=== PATIENT | female | born 1990 | race Caucasian/White ===

== ENCOUNTER 2024-05-25 16:04 | Outpatient (CLI) | payer OTHER | END 2024-05-25 17:35 | disposition home or self-care (01) | LOC: NST 16:04 | PROVIDERS: ATTEND Obstetrics & Gynecology Maternal & Fetal Medicine | DX: Z34.82 Encounter for supervision of other normal pregnancy, second trimester (principal) ==

== ENCOUNTER 2024-06-03 08:39 | Outpatient (CLI) | payer OTHER | END 2024-06-03 09:32 | disposition home or self-care (01) | LOC: NST 08:39 | PROVIDERS: ATTEND Obstetrics & Gynecology Maternal & Fetal Medicine | DX: Z34.82 Encounter for supervision of other normal pregnancy, second trimester (principal) ==

== ENCOUNTER 2024-07-22 13:08 | Outpatient (CLI) | payer OTHER | END 2024-07-22 14:23 | disposition home or self-care (01) | LOC: NST 13:08 | PROVIDERS: ATTEND Obstetrics & Gynecology | DX: Z34.83 Encounter for supervision of other normal pregnancy, third trimester (principal) ==

== ENCOUNTER 2024-08-23 09:55 | Outpatient (CLI) | payer OTHER | END 2024-08-23 10:45 | disposition home or self-care (01) | LOC: NST 09:55 | PROVIDERS: ATTEND Obstetrics & Gynecology | DX: Z34.83 Encounter for supervision of other normal pregnancy, third trimester (principal) ==

== ENCOUNTER 2024-08-26 10:53 | Inpatient (IN) | payer OTHER ==
[~2024-08-26] VITALS: Ht 152.4 cm; Wt 3.2 kg
[2024-08-30 14:17] VITALS: BP 110/58
[2024-08-30 14:40] VITALS: BP 110/58
[2024-08-30 14:58] LABS: HEMATOCRIT 35.4 % (36.0-45.00); HEMOGLOBIN 12.1 g/dL (12.0-15.00); MEAN CELL VOLUME 84.7 fL (80.00-100.00); MEAN CORPUSCULAR HGB CONC 34.3 g/dl (32.0-36.0); PLATELET COUNT 218 K/uL (150-450); RED BLOOD COUNT 4.17 M/uL (4.00-6.00); RED CELL DISTRIBUTION WIDTH 14.5 % (11.5-14.5)
[2024-08-30 14:59] LABS: PH,URINE 6.5 (5.0-8.0); URINE APPEARANCE Clear; URINE BILIRRUBIN Negative (NEGATIVE); URINE BLOOD Small; URINE COLOR Yellow; URINE GLUCOSE Negative (NEGATIVE); URINE KETONE Negative (NEGATIVE); URINE LEUKOCYTE Small; URINE NITRATE Negative; URINE PROTEIN Trace (NEGATIVE)
[2024-08-30 15:03] LABS: URINE BACTERIA 2801.8 uL (0.0-1933); URINE EPITHELIAL CELLS 24.5 uL (0.0-38.8); URINE RBC 75.4 uL (0.0-20.8); URINE WBC 58.1 uL (0.0-23.2)
[2024-08-30] MEDS ORDERED: CHILDREN'S ASPI81 MG PO (15:11)
[2024-08-30] MEDS ORDERED: PRENATAL + DHA1 EAC1 PO (15:11)
[2024-08-30] MEDS ORDERED: RINGERS SOLUTION,LACTATED 1,000 ML IV SCH (15:15)
[2024-08-30 15:23] LABS: INR 0.98; PARTIAL THROMBOPLASTIN TIME 23.6 SECONDS (22.0-34.0); PROTHROMBIN TIME 10.7 SECONDS (9.0-11.5)
[2024-08-30 15:25] VITALS: BP 117/63
[2024-08-30 15:28] LABS: ALBUMIN 2.8 gm/dL (3.4-5.0); BILIRUBIN TOTAL 0.27 mg/dL (0.3-1.2); CALCIUM 9.5 mg/dL (8.5-10.1); CREATININE SERUM 0.56 mg/dL (0.55-1.02); GFR 125.45; GLOBULINA 3.3 G/DL (2.4-3.5); POTASSIUM 4.5 mEq/L (3.5-5.1); TOTAL PROTEIN 6.1 gm/dL (6.4-8.2)
[2024-08-30 15:30] LABS: URINE CAST 0.61 uL (0.0-1.40); URINE CRYSTALS FEW /HPF
[2024-08-30 15:31] LABS: URINE MUCUS SCANT
[2024-08-30] MEDS ORDERED: MISOPROSTOL 25 MCG TABLET VAG ONE (15:45)
[2024-08-30] MEDS ORDERED: FAMOTIDINE/PF 20 MG in 0.9 % SODIUM CHLORIDE 8 ML IV PUSH PRN (16:45)
[2024-08-30] MEDS ORDERED: MORPHINE SULFATE 4 MG/ML CARTRIDGE IV PRN (16:45)
[2024-08-30] MEDS ORDERED: MORPHINE SULFATE 4 MG/ML VIAL IV SCH (17:00)
[2024-08-30 19:51] VITALS: BP 99/60
[2024-08-31 00:06] VITALS: BP 113/68
[2024-08-31 03:32] VITALS: BP 114/70
[2024-08-31] MEDS ORDERED: OXYTOCIN 500 ML IV ONE (07:30)
[2024-08-31 08:05] VITALS: BP 116/72
[2024-08-31 10:26] VITALS: BP 118/65
[2024-08-31] MEDS ORDERED: ERYTHROMYCIN BASE OPHT 1GM EACH TUBE OP ONE (12:00)
[2024-08-31] MEDS ORDERED: OXYTOCIN 10 UNITS/ML VIAL IV ONE (12:00)
[2024-08-31] MEDS ORDERED: MORPHINE SULFATE 4 MG/ML VIAL IV ONE ×2 (14:20→14:50)
[2024-08-31] MEDS ORDERED: MORPHINE SULFATE 4 MG/ML CARTRIDGE IV PRN (16:00)
[2024-08-31] MEDS ORDERED: OXYTOCIN 1,000 ML IV ONE (16:00)
[2024-08-31] MEDS ORDERED: RINGERS SOLUTION,LACTATED 1,000 ML IV SCH (16:00)
[2024-08-31] MEDS ORDERED: SIMETHICONE 125 MG CAPSULE PO SCH (17:00)
[2024-08-31] MEDS ORDERED: GABAPENTIN 300 MG CAPSULE PO SCH (17:00)
[2024-08-31 17:56] VITALS: BP 100/60
[2024-08-31] MEDS ORDERED: ACETAMINOPHEN 500 MG GEL..CAP PO SCH (18:00)
[2024-08-31] MEDS ORDERED: ONDANSETRON HCL 2 MG/ML VIAL IV SCH (18:00)
[2024-08-31] MEDS ORDERED: KETOROLAC TROMETHAMINE 30 MG VIAL IV SCH (18:00)
[2024-09-01 01:02] VITALS: BP 92/57
[2024-09-01 07:30] LABS: HEMOGLOBIN 10.3 g/dL (12.0-15.00); MEAN CORPUSCULAR HEMOGLOBIN 29.6 pg (27.00-32.0); MEAN CORPUSCULAR HGB CONC 34.4 g/dl (32.0-36.0); PLATELET COUNT 175 K/uL (150-450); RED BLOOD COUNT 3.48 M/uL (4.00-6.00); RED CELL DISTRIBUTION WIDTH 14.4 % (11.5-14.5)
[2024-09-01 08:00] VITALS: BP 105/50
[2024-09-01] MEDS ORDERED: OxyCODONE HCL 5 MG TABLET (ROXICODONE) PO PRN (08:00)
[2024-09-01] MEDS ORDERED: KETOROLAC TROMETHAMINE 10 MG TABLET PO SCH (08:00)
[2024-09-01] MEDS ORDERED: DOCUSATE SODIUM 100MG CAP PO SCH (09:00)
[2024-09-01] MEDS ORDERED: FF) RHO(D) IMMUNE GLOBULIN (POM) IM ONE (10:45)
[2024-09-01 12:00] VITALS: BP 105/51
[2024-09-01 15:52] VITALS: BP 118/61
[2024-09-02 00:23] VITALS: BP 128/78
[2024-09-02 09:25] VITALS: BP 124/85
[2024-09-02] MEDS ORDERED: KETO10TA2 PO (10:51)
[2024-09-02] MEDS ORDERED: PERCOCET 5-3251 EACH PO (10:51)
== END 2024-09-02 13:42 | disposition home or self-care (01) | DRG 788 ==
LOC: LDR 08-30 13:38 → O/R 08-31 13:01 → OB/GYN 08-31 14:28 → SURG 09-05 15:15
PROVIDERS: ADMIT Obstetrics & Gynecology; ATTEND Obstetrics & Gynecology
PROC: 3E0P7VZ Introduction of Hormone into Female Reproductive, Via Natural or Artificial Opening (ICD-10-PCS; 2024-08-30)
PROC: 4A1HXCZ Monitoring of Products of Conception, Cardiac Rate, External Approach (ICD-10-PCS; 2024-08-30)
PROC: 3E033VJ Introduction of Other Hormone into Peripheral Vein, Percutaneous Approach (ICD-10-PCS; 2024-08-31)
PROC: 10D00Z1 Extraction of Products of Conception, Low, Open Approach (ICD-10-PCS; principal; 2024-08-31 11:45)
DX: O36.8330 Maternal care for abnormalities of the fetal heart rate or rhythm, third trimester, not applicable or unspecified (principal); O24.420 Gestational diabetes mellitus in childbirth, diet controlled; Z3A.39 39 weeks gestation of pregnancy; Z37.0 Single live birth; Z20.822 Contact with and (suspected) exposure to COVID-19